=== PATIENT | male | born 1965 | race Caucasian/White ===

== ENCOUNTER 2017-07-13 09:28 | Emergency (ER) | payer BC, OTHER ==
[2017-07-13] MEDS ORDERED: ASPIRIN 81 MG TAB.CHEW ONE (09:32)
[2017-07-13] MEDS ORDERED: ASPIRIN 81 MG TAB.CHEW PO ONE (09:33)
[2017-07-13] MEDS: NITROGLYCERIN 0.4 MG/TAB BTL SL ONE ×2 (09:44→09:51)
[2017-07-13] MEDS ORDERED: NITROGLYCERIN 0.4 MG/TAB BTL SL ONE (09:44)
[2017-07-13 09:47] LABS: Hematocrit 45.3 % (42.0-52.0); Hemoglobin 15.8 gm/dL (13.5-18.0); Mean Cell Volume 89.9 fl (78-100); Mean Corpuscular Hemoglobin 31.3 pg (27-31); Mean Corpuscular Hgb Conc 34.9 g/dl (32-36); Mean Platelet Volume 10.2 fl (6.0-9.5); Neutrophil # 10.6 K/mm3 (1.3-6.0); Neutrophil % 77.6 % (42-75.0); Platelet Count 224 K/mm3 (150-450); Red Blood Count 5.04 M/mm3 (4.7-6.0); Red Cell Distribution Width 13.2 % (11.5-14.0); White Blood Count 13.7 K/mm3 (4.0-10.5)
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
[2017-07-13 09:56] LABS: Prothrombin Time (Patient) 10.2 Seconds (9.4-11.4)
[2017-07-13 09:58] LABS: INR 0.98 INR (0.90-1.10); Partial Thrombolplastin Time 27.3 Seconds (24-32)
[2017-07-13 10:04] LABS: Albumin * 4.1 gm/dl (3.4-5.0); Anion Gap 14.7 mmol/L (6.8-13.8); BUN/Creatinine Ratio 13.8 (9.0-21.6); Bilirubin, Total 0.8 mg/dL (0.0-1.1); Ca. Corrected For Albumin 8.8 mg/dL (8.4-10.2); Calcium * 9.2 mg/dL (7.9-10.9); Carbon Dioxide 26.2 mmol/L (24-32.6); Potassium 3.9 mmol/L (3.4-4.6); Total Protein 7.6 gm/dL (6.2-8.2)
[2017-07-13 10:09] LABS: Troponin I 0.887 ng/ml (0.00-0.10)
[2017-07-13] MEDS ORDERED: NITROGLYCERIN IN 5 % DEXTROSE 50 MG/250 ML INFUS..BTL IV PRN (10:11)
[2017-07-13] MEDS ORDERED: HEPARIN SODIUM,PORCINE 5,000 UNITS/ML VIAL IV ONE (10:11)
[2017-07-13] MEDS ORDERED: CLOPIDOGREL BISULFATE 75 MG TABLET PO STA (10:11)
[2017-07-13] MEDS ORDERED: CLOPIDOGREL BISULFATE 75 MG TABLET ONE ×2 (10:12→10:16)
[2017-07-13] MEDS ORDERED: HEPARIN SODIUM,PORCINE 5,000 UNITS/ML VIAL ONE (10:12)
[2017-07-13 10:27] VITALS: BP 151/81
== END 2017-07-13 10:26 | disposition short-term general hospital (02) ==
LOC: ER 09:28
DX: I21.4 Non-ST elevation (NSTEMI) myocardial infarction (principal); F17.200 Nicotine dependence, unspecified, uncomplicated; I10 Essential (primary) hypertension